=== PATIENT | male | born 1990 | race Two or more races ===

== ENCOUNTER 2017-08-19 20:04 | Emergency (ER) | payer SELFPAY ==
[~2017-08-19] VITALS: Ht 182.9 cm; Wt 87.1 kg
[2017-08-19 20:50] LABS: Basophils # (auto) 0.1 uL; Basophils % (auto) 0.3 % (0.0-2.0); Eosinophils # (auto) 0 uL; Eosinophils % (auto) 0.1 % (0.0-7.0); Hematocrit 41.9 % (41.0-53.0); Hemoglobin 13.8 g/dL (13.5-17.5); Lymphocytes # (auto) 1.8 uL; Lymphocytes % (auto) 8.7 % (10.0-50.0); Mean Corpuscular Hemoglobin 28.1 pg (28.0-32.0); Mean Corpuscular Hgb Conc. 32.9 g/dL (32.0-36.0); Mean Corpuscular Volume 85.7 fL (80.0-100.0); Monocytes # (auto) 1.5 uL; Monocytes % (auto) 7.2 % (0.0-12.0); Neutrophils # (auto) 17.1 uL; Neutrophils % (auto) 83.7 % (37.0-80.0); Nucleated Red Blood Cells % 0.1 %; Platelet Count (auto) 299 10^3/uL (140-450); Red Blood Cells 4.89 10^6/uL (4.5-5.90); Red Cell Distribution Width 13.3 % (11.8-14.3); White Blood Cell 20.4 10^3/uL (4.4-10.8)
[2017-08-19 21:08] LABS: Alanine Aminotransferase 25 U/L (16-61); Albumin 4.6 g/dL (3.4-5.0); Alkaline Phosphatase 91 U/L (45-117); Anion Gap 10 (5-15); Aspartate Aminotransferase 21 U/L (15-37); Blood Alcohol < 3.0 mg/dL (0-5); Blood Urea Nitrogen 26 mg/dL (7-18); Calcium 8.5 mg/dL (8.5-10.1); Carbon Dioxide 23 mmol/L (21-32); Chloride 106 mmol/L (98-107); GFR African American 110 mL/min; GFR Non-African American 91 mL/min; Glucose 86 mg/dL (74-106); Potassium 3.2 mmol/L (3.5-5.1); Sodium 139 mmol/L (136-145); Total Protein 8.1 g/dL (6.4-8.2)
[2017-08-19 21:16] LABS: INR 1.1 (0.9-1.15)
[2017-08-19] MEDS ORDERED: HYDROcodone-ACET 10/325MG TAB PO ONE (22:30)
[2017-08-19 22:42] VITALS: BP 130/77
== END 2017-08-20 00:18 | disposition home or self-care (01) ==
LOC: ER 20:04
DX: S60.221A Contusion of right hand, initial encounter (principal); R10.9 Unspecified abdominal pain; R42 Dizziness and giddiness; V86.55XA Driver of 3- or 4- wheeled all-terrain vehicle (ATV) injured in nontraffic accident, initial encounter; Y93.89 Activity, other specified; Y99.8 Other external cause status; Y92.820 Desert as the place of occurrence of the external cause
CPT/HCPCS: 36415; 70450; 73130; 74176; 80053; 80320; 85025; 85610; 85730